=== PATIENT | female | born 1985 | race Two or more races ===

== ENCOUNTER 2017-07-10 17:34 | Outpatient (CLI) | payer SELFPAY ==
[~2017-07-10] VITALS: Ht 162.6 cm; Wt 85.5 kg
[2017-07-10 17:57] LABS: DAU SCREEN DISCLAIMER
[2017-07-10 19:08] LABS: AMNI OBC PASS; AMNISURE NEGATIVE (NEGATIVE)
== END 2017-07-10 20:36 | disposition home or self-care (01) ==
LOC: LDOP 17:34
PROVIDERS: ATTEND Obstetrics & Gynecology
DX: O26.892 Other specified pregnancy related conditions, second trimester (principal); O62.9 Abnormality of forces of labor, unspecified; M54.9 Dorsalgia, unspecified; R10.9 Unspecified abdominal pain; Z3A.22 22 weeks gestation of pregnancy
CPT/HCPCS: 59025; 80307; 81001; 84112; 87086; 89060; 99201; G0463; G0479; Q0114